=== PATIENT | female | born 1945 | race Caucasian/White ===

== ENCOUNTER 2016-05-28 12:20 | Emergency (ER) | payer OTHER ==
--- NOTE | 2016-05-28 13:06 | EDPHY ---
H & P Stated Complaint: mario alberto fell on head/now with mcneal/nausea Time Seen by Provider: 05/28/16 12:51 HPI/ROS: CHIEF COMPLAINT: Head injury HISTORY OF PRESENT ILLNESS: 62-year-old female with no anticoagulant use in the ER via private vehicle, not a trauma activation, [employer] fully, was at a meeting and a book shelf fell and impacted the occiput of her head approximately 2 hours prior to arrival. No loss of consciousness. No amnesia. Complaining of a frontal headache and nausea and confusion. No neck pain. No peripheral paresthesia, weakness, numbness. PRIMARY CARE PROVIDER:[employer] REVIEW OF SYSTEMS: A ten point review of systems was performed and is negative with the exception of the items mentioned in the HPI PAST MEDICAL/SURGICAL HISTORY: no anticoagulant use, SOCIAL HISTORY: [employer] employee PHYSICAL EXAM 1) GENERAL: Well-developed, well-nourished, alert and oriented. Answering questions appropriately. 2) HEAD: Normocephalic, atraumatic no hematoma, no depression no laceration 3) HEENT: Pupils equal, round, reactive to light bilaterally. Negative Horners. Nasopharynx, oropharynx, clear. No deformity or angulation of nose. No septal hematoma. No rhinorrhea. No oral trauma. Ears bilaterally with normal tympanic membranes. No hemotympanum. No fluid or blood in the external auditory canal. No raccoon eyes. No Abreu sign. Teeth are normally aligned with no gross malocclusion, TMJ bilaterally nontender, facial bones nontender including the zygomatic arch, maxilla mandible. 4) NECK: No cervical collar is on. Posterior cervical spine is nontender, no stepoff, no effusion. Full range of motion which does not elicit any midline cervical spine pain, no posterior midline tenderness, no step-off. 5) LUNGS: Clear to auscultation bilaterally. 6) HEART: Regular rate and rhythm, 7) ABDOMEN: No guarding, no rebound, no focal tenderness 8) MUSCULOSKELETAL: Moving all extremities, no focal areas of tenderness, no obvious trauma. 9) BACK: No midline vertebral tenderness, no fluctuance. 10) SKIN: No laceration. No abrasion DIFFERENTIAL DIAGNOSIS:In no particular order, including but not limited to subarachnoid hemorrhage, migraine headache, tension headache and infectious causes such as meningitis, pharyngitis and sinusitis. - Personal History Current Tetanus/Diphtheria Vaccine: Yes Tetanus Vaccine Date: - Medical/Surgical History Hx Asthma: No Hx Chronic Respiratory Disease: No Hx Diabetes: No Hx Cardiac Disease: No Hx Renal Disease: No Hx Cirrhosis: No Hx Alcoholism: No Hx HIV/AIDS: No Hx Splenectomy or Spleen Trauma: No Other PMH: uterine cancer - Social History Smoking Status: Never smoked Constitutional: Initial Vital Signs Temperature (C) 36.4 C 05/28/16 12:27 Heart Rate 75 05/28/16 12:27 Respiratory Rate 17 05/28/16 12:27 Blood Pressure 155/73 H 05/28/16 12:27 O2 Sat (%) 96 05/28/16 12:27 O2 Delivery Mode Room Air Allergies/Adverse Reactions: codeine [Codeine] Allergy (Verified 05/28/16 12:25) Vomiting erythromycin base [Erythromycin Base] Allergy (Verified 05/28/16 12:25) Vomiting ALL NARCOTICS Allergy (Severe, Uncoded 02/14/12 13:30) N/V CONTRAST DYE Allergy (Uncoded 02/14/12 12:57) Hives SOME SOAP Allergy (Uncoded 02/14/12 13:52) Rash/ITCHING TAPES Allergy (Uncoded 02/14/12 13:49) RED SKIN Home Medications: Medication Instructions Recorded Aspirin [Aspirin 81mg (OTC)] 81 mg PO DAILY 02/14/12 Calcium Carb W/Vit D [Calcium Carb 500 mg PO DAILY 02/14/12 W/Vit D 500/200 (OTC)] Ibuprofen [Motrin 600 mg (RX)] 600 mg PO DAILY PRN 02/14/12 Levothyroxine [Synthroid 100 mcg 100 mcg PO DAILY06 02/14/12 (RX)] Liothyronine Sodium [Cytomel 5 mcg 5 mcg PO DAILY 02/14/12 (RX)] Multivitamins [Multivitamin (OTC)] 1 each PO DAILY 02/14/12 Medical Decision Making - Diagnostics Imagin:00 p.m.: CT imaging of head interpreted by radiologist is negative for posttraumatic sequelae. Images reviewed by myself ED Course/Re-evaluation: 2:04 p.m.: Patient re-evaluated. She is answering questions appropriately. I think she can be discharged with my usual and customary head injury precautions and instructions. She had family members feel comfortable being discharged. - Data Points Medications Given: Discontinued Medications Ibuprofen (Motrin) 600 mg PO EDNOW ONE Stop: 05/28/16 13:20 Last Admin: 05/28/16 13:19 Dose: 600 mg Departure - Departure Disposition: Home, Routine, Self-Care Clinical Impression: Head injury Qualifiers: Encounter type: initial encounter Qualified Code(s): S09.90XA - Unspecified injury of head, initial encounter Condition: Good Instructions: Head Injury (ED) Additional Instructions: ALTHOUGH THERE IS NO EVIDENCE OF SERIOUS HEAD INJURY AT THIS TIME, DELAYED SIGNS CAN APPEAR 24 TO 48 HOURS AFTER INJURY. WE RECOMMEND THAT YOU DESIGNATE A FRIEND OR FAMILY MEMBER TO OBSERVE YOU OVER THE NEXT FEW DAYS TO ENSURE THAT YOUR CONDITION IS PROGRESSING NORMALLY. PLEASE RETURN TO THE EMERGENCY DEPARTMENT (ED) IMMEDIATELY IF YOU HAVE INCREASED HEADACHE, PERSISTENT HEADACHE , VOMITING, WEAKNESS, CONFUSION OR VISUAL PROBLEMS. WE RECOMMEND THAT YOU DO NOT RESUME CONTACT SPORTS OR ACTIVITIES THAT TAKE COORDINATION OR BALANCE SUCH SKIING OR RIDING A BICYCLE UNTIL CLEARED TO DO SO BY YOUR DOCTOR OR BY A NEUROLOGIST. Referrals: [facility],. [Clinic] - 05/31/16 Stand Alone Forms: Work Comp Follow Up
[2016-05-28] MEDS ORDERED: IBUPROFEN 600 MG TAB PO ONE ×2 (13:17→13:19)
[2016-05-28 14:27] VITALS: BP 153/69; PULSE 54; RESP 16; TEMP 98.2; O2SAT 92
== END 2016-05-28 14:25 | disposition home or self-care (01) ==
DX: S09.90XA Unspecified injury of head, initial encounter (principal); Z79.82 Long term (current) use of aspirin; Z85.42 Personal history of malignant neoplasm of other parts of uterus; W20.8XXA Other cause of strike by thrown, projected or falling object, initial encounter; Y99.8 Other external cause status; Y93.89 Activity, other specified

== ENCOUNTER 2016-09-09 21:10 | Emergency (ER) | payer OTHER ==
[2016-09-09 21:30] VITALS: BP 138/67; PULSE 71; RESP 14; TEMP 98.1; O2SAT 92
--- NOTE | 2016-09-09 21:49 | EDPHY ---
H & P Time Seen by Provider: 09/09/16 21:37 HPI/ROS: CHIEF COMPLAINT: Right hand pain History by patient HISTORY OF PRESENT ILLNESS: 62 known presents complaining of pain in her right arm and hand particularly in her right middle finger after slipping off some stairs and landing on her right arm and hip. She denies hitting her head or losing consciousness. She states her middle finger swelled up right away and she medially took off her ring and iced it. She denies other pain or injury. REVIEW OF SYSTEMS: As in HPI, and all other systems reviewed and are negative Smoking Status: Never smoked Physical Exam: General Appearance: Alert and no distress. Eyes: Pupils equal and round no injection. Musculoskeletal: Neck is supple and nontender. Extremities: Right hand positive ecchymosis and deformity over right middle finger PIP with decreased range of motion secondary to pain, full range of motion of the IP, distal cap refill less than 2 seconds, distal sensation intact , mild ecchymoses over right ring DIP with full range of motion, distal cap refill and sensory intact, full range of motion of right wrist elbow and shoulder. Normal gait. Skin: No rashes or lesions. [ ] Constitutional: Initial Vital Signs Temperature (C) 36.7 C 09/09/16 21:24 Heart Rate 71 09/09/16 21:24 Respiratory Rate 14 09/09/16 21:24 Blood Pressure 138/67 H 09/09/16 21:24 O2 Sat (%) 92 09/09/16 21:24 O2 Delivery Mode Room Air Allergies/Adverse Reactions: CONTRAST DYE Allergy (Uncoded 09/09/16 21:23) Hives SOME SOAP Allergy (Uncoded 09/09/16 21:23) Rash/ITCHING TAPES Allergy (Uncoded 09/09/16 21:23) RED SKIN Home Medications: Medication Instructions Recorded Aspirin [Aspirin 81mg (OTC)] 81 mg PO DAILY 02/14/12 Calcium Carb W/Vit D [Calcium Carb 500 mg PO DAILY 02/14/12 W/Vit D 500/200 (OTC)] Levothyroxine [Synthroid 100 mcg 100 mcg PO DAILY06 02/14/12 (RX)] Liothyronine Sodium [Cytomel 5 mcg 5 mcg PO DAILY 02/14/12 (RX)] Multivitamins [Multivitamin (OTC)] 1 each PO DAILY 02/14/12 MDM/Departure - MDM Imaging Results: Imaging Impressions Hand X-Ray 09/09/16 21:30 Impression: Bone demineralization and degenerative osteoarthritic features, with no acute osseous abnormality identified. ED Course/Re-evaluation: 71-year-old woman presents complaining of ecchymosis and swelling over right middle finger the IP joint. X-ray shows no evidence of fracture. And re- evaluation. She is able to extend and flex against resistance and is neurovascularly intact. We discussed home care and conservative measures. - Depart Disposition: Home, Routine, Self-Care Clinical Impression: Finger contusion Qualifiers: Encounter type: initial encounter Finger: middle finger Damage to nail status: without damage Laterality: right Qualified Code(s): S60.031A - Contusion of right middle finger without damage to nail, initial encounter Condition: Good Instructions: Hematoma (ED) Additional Instructions: You were seen by Dr. Tala Clark today. Take Tylenol or ibuprofen as needed for pain. Ice your finger as needed for pain and swelling. Return for any worsening or new concerns. Referrals: Sade Edmond MD [Primary Care Provider] - As per Instructions
== END 2016-09-09 22:07 | disposition home or self-care (01) ==
LOC: CED 21:10
DX: S60.031A Contusion of right middle finger without damage to nail, initial encounter (principal); Z79.82 Long term (current) use of aspirin; W18.40XA Slipping, tripping and stumbling without falling, unspecified, initial encounter
CPT/HCPCS: 73130-PO

== ENCOUNTER → 2016-09-29 | Outpatient (CLI) | payer OTHER | LOC: FIMAGING 09:20 | PROVIDERS: ATTEND Internal Medicine | DX: S69.91XA Unspecified injury of right wrist, hand and finger(s), initial encounter (principal); M79.641 Pain in right hand ==